=== PATIENT | male | born 1940 | race African-American/Black ===

== ENCOUNTER 2025-06-08 19:00 | Inpatient (IN) | payer MEDICARE, MEDICAID ==
[~2025-06-08] VITALS: Ht 170.2 cm; Wt 62.6 kg
[~2025-06-08 19:00] MED LIST: DILATIN
[2025-06-08] MEDS: SODIUM CHLORIDE 0.9% 1,000 ML IV ONE ×2 (19:25→19:48)
[2025-06-08 19:59] LABS: BASOPHILS % 0.3 % (0.0-2.0); EOSINOPHILS % 0.5 % (0.0-5.0); HEMATOCRIT. 36.4 % (42.0-52.0); HEMOGLOBIN. 11.0 g/dL (14.0-18.0); LYMPHOCYTES % 28.6 % (20.0-50.0); MEAN PLATELET VOLUME 8.3 fl (7.4-10.4); MONOCYTES % 8.4 % (2.0-8.0); NEUTROPHILS % 62.2 % (40.0-76.0); PLATELET 302 x1000/uL (130-400); RED BLOOD CELL COUNT 4.22 mill/uL (4.7-6.1); RED CELL DISTRIBUTION WIDTH 21.6 % (11.6-14.6)
[2025-06-08 20:14] LABS: TROPONIN I HIGH SENSITIVITY 41 ng/L (3.0-53)
[2025-06-08 20:15] LABS: CREATININE 1.1 mg/dL (0.6-1.3); UREA NITROGEN BLOOD 25 mg/dL (9-23)
[2025-06-08 20:17] LABS: ASPARTATE AMINOTRANSFERASE 15 IU/L (<34); BILIRUBIN DIRECT < 0.1 mg/dL (<=3.0); BILIRUBIN TOTAL 0.2 mg/dL (0.1-1.0); PROTEIN TOTAL 8.3 g/dL (6.0-8.3)
[2025-06-08 22:13] LABS: TROPONIN I HIGH SENSITIVITY 44 ng/L (3.0-53)
[2025-06-08] MEDS ORDERED: ACETAMINOPHEN 650MG SUPP PR PRN ×2 (23:15)
[2025-06-08] MEDS ORDERED: ONDANSETRON HCL 4MG/2ML INJ IV PRN (23:15)
[2025-06-08] MEDS ORDERED: DIPHENHYDRAMINE 50MG/ML VIAL IV PRN (23:15)
[2025-06-09] VITALS (7 sets, daily range): BP systolic 109–152; BP diastolic 51–103; PULSE 85–102; RESP 16–21; TEMP 36.2–37.2; O2SAT 94–100
[2025-06-09] MEDS ORDERED: CLOP-31 MT (00:43)
[2025-06-09] MEDS ORDERED: COR3 MT (00:47)
[2025-06-09] MEDS ORDERED: LIP40 MT (00:47)
[2025-06-09] MEDS ORDERED: PHEN100C4 MT (01:14)
[2025-06-09] MEDS ORDERED: ASPI-1079 PO (01:17)
[2025-06-09] MEDS ORDERED: LISI2.5T47 PO (01:17)
[2025-06-09] MEDS ORDERED: KEPPSOL MT (01:17)
[2025-06-09] MEDS ORDERED: TAMS-54 MT (01:18)
[2025-06-09] MEDS: DEXT 5%/0.2% NACL 1,000 ML IV SCH (06:44)
[2025-06-09] MEDS: FAMOTIDINE 20MG/2ML VIAL IV SCH (09:44)
[2025-06-09] MEDS: ENOXAPARIN 40MG/0.4ML SYR SUBCUT SCH (09:44)
[2025-06-09 12:41] LABS: BASOPHILS % 0.3 % (0.0-2.0); EOSINOPHILS % 0.5 % (0.0-5.0); HEMATOCRIT. 33.7 % (42.0-52.0); HEMOGLOBIN. 10.2 g/dL (14.0-18.0); LYMPHOCYTES % 25.6 % (20.0-50.0); MEAN PLATELET VOLUME 8.2 fl (7.4-10.4); MONOCYTES % 8.8 % (2.0-8.0); NEUTROPHILS % 64.8 % (40.0-76.0); PLATELET 270 x1000/uL (130-400); RED BLOOD CELL COUNT 3.86 mill/uL (4.7-6.1); RED CELL DISTRIBUTION WIDTH 20.9 % (11.6-14.6)
[2025-06-09 13:24] LABS: CREATININE 0.8 mg/dL (0.6-1.3)
[2025-06-09 13:25] LABS: UREA NITROGEN BLOOD 24 mg/dL (9-23)
[2025-06-09 13:27] LABS: PHOSPHORUS 2.5 mg/dL (2.5-4.9)
[2025-06-09 13:29] LABS: T4 FREE 1.29 ng/dL (0.89-1.76)
[2025-06-09 14:10] LABS: CLARITY URINE TURBID (CLEAR); COLOR URINE YELLOW (YELLOW); GLUCOSE URINE NEGATIVE (NEGATIVE); KETONES URINE 1+ (NEGATIVE); LEUKOCYTE ESTERASE URINE 2+ (NEGATIVE); NITRITE URINE NEGATIVE (NEGATIVE); OCCULT BLOOD URINE 2+ (NEGATIVE); PH URINE 6.0 (4.5-8.0); PROTEIN URINE 3+ (NEGATIVE); SPECIFIC GRAVITY URINE 1.020 (1.005-1.030); UROBILINOGEN URINE 0.2 E.U./dL (0.2-1.0)
[2025-06-09 14:28] LABS: BACTERIA URINE TRACE; RBC URINE 15-25 /hpf (0-2); SQUAMOUS EPITHELIAL CELL URINE 1+ /lpf (RARE/1+); WBC URINE TNTC /hpf (0-2)
[2025-06-10] VITALS (18 sets, daily range): BP systolic 89–161; BP diastolic 59–104; PULSE 62–133; RESP 14–29; TEMP 36.1–36.9; O2SAT 96–100
[2025-06-10 09:25] LABS: CREATININE 0.8 mg/dL (0.6-1.3); UREA NITROGEN BLOOD 18 mg/dL (9-23)
[2025-06-10] MEDS ORDERED: LORAZEPAM 2MG/ML UD SYRINGE ONE (20:32)
[2025-06-10] MEDS ORDERED: MIDAZOLAM 100MG/100ML PMX 100 ML IV PRN (21:00)
[2025-06-10] MEDS: PROPOFOL 10MG/ML 100ML 100 ML IV PRN (21:16)
[2025-06-10] MEDS ORDERED: IPRATROPIUM/ALBUTEROL 0.5-3(2.5)MG/3ML NEB HHN PRN (22:00)
[2025-06-10 22:09] LABS: BG BASE EXCESS -5.1 mmol/L (-2.0-3.0); BG CARBOXYHEMOGLOBIN 0.3 % (0.5-1.5); BG DEOXYHEMOGLOBIN 0.3 % (0.0-5.0); BG FRACTION INSPIRED OXYGEN 100; BG HCO3 ACT 17.7 mmol/L (21.0-28.0); BG METHEMOGLOBIN 0.0 % (0.5-1.5); BG OXYGEN SATURATION 99.7 % (94.0-98.0); BG OXYHEMOGLOBIN 99.4 % (94.0-98.0); BG PCO2 26.3 mmHg (35.0-48.0); BG PEEP (cmH2O) 5.0 cmH2O; BG PH 7.445 (7.350-7.450); BG PO2 616.9 mmHg (83.0-108.0); BG SAMPLE SITE RIGHT BRACHIAL; BG TIDAL VOLUME(mL) 500.0 mL; BG TOTAL HEMOGLOBIN 11.0 g/dL (13.5-17.5); BG TOTAL RESPIRATORY RATE 19 b/min; BG VENT MODE VENT - AC; BG VENT RATE 16.0 set
[2025-06-10] MEDS: LEVETIRACETAM 1000MG PREMIX 100 ML IV SCH (22:28)
[2025-06-10] MEDS: DEXTROSE 5% WATER 1,000 ML IV SCH (22:42)
[2025-06-10 23:41] LABS: PLATELET 229 x1000/uL (130-400); RED BLOOD CELL COUNT 4.00 mill/uL (4.7-6.1); RED CELL DISTRIBUTION WIDTH 20.0 % (11.6-14.6)
[2025-06-10 23:53] LABS: CREATININE 0.9 mg/dL (0.6-1.3); UREA NITROGEN BLOOD 15 mg/dL (9-23)
[2025-06-10 23:55] LABS: PHOSPHORUS 2.4 mg/dL (2.5-4.9)
[2025-06-11] VITALS (86 sets, daily range): BP systolic 81–139; BP diastolic 52–106; PULSE 75–117; RESP 12–22; TEMP 33.3–37.3; O2SAT 98–100
[2025-06-11 00:15] LABS: TROPONIN I HIGH SENSITIVITY 69 ng/L (3.0-53)
[2025-06-11] MEDS: MAGNESIUM 1 G PREMIX 100 ML IV SCH (05:42)
[2025-06-11] MEDS: CEFTRIAXONE 2GM/50ML 50 ML IV SCH (05:46)
[2025-06-11] MEDS: POTASSIUM PHOSPHATE 20 MMOL in DEXT 5% WATER 243.3333 ML IV SCH (05:47)
[2025-06-11 07:04] LABS: CREATININE 0.8 mg/dL (0.6-1.3)
[2025-06-11 07:05] LABS: TRIGLYCERIDE 122 mg/dL (0-150); UREA NITROGEN BLOOD 14 mg/dL (9-23)
[2025-06-11 07:07] LABS: PHOSPHORUS 2.5 mg/dL (2.5-4.9)
[2025-06-11] MEDS ORDERED: LEVETIRACETAM 1,000MG in NACL 100ML PREMIX IV SCH (09:00)
[2025-06-11 11:26] LABS: BG BASE EXCESS -5.2 mmol/L (-2.0-3.0); BG CARBOXYHEMOGLOBIN 0.3 % (0.5-1.5); BG DEOXYHEMOGLOBIN 0.5 % (0.0-5.0); BG FRACTION INSPIRED OXYGEN 35; BG HCO3 ACT 18.7 mmol/L (21.0-28.0); BG METHEMOGLOBIN 0.1 % (0.5-1.5); BG OXYGEN SATURATION 99.5 % (94.0-98.0); BG OXYHEMOGLOBIN 99.1 % (94.0-98.0); BG PCO2 30.6 mmHg (35.0-48.0); BG PEEP (cmH2O) 5.0 cmH2O; BG PH 7.403 (7.350-7.450); BG PO2 209.9 mmHg (83.0-108.0); BG SAMPLE SITE RIGHT RADIAL; BG TIDAL VOLUME(mL) 500.0 mL; BG TOTAL HEMOGLOBIN 10.5 g/dL (13.5-17.5); BG VENT MODE VENT - AC; BG VENT RATE 16.0 set
[2025-06-11] MEDS: POTASSIUM CHLORIDE 20MEQ/PACKET PO NR ×2 (11:35→13:27)
[2025-06-11] MEDS: MAGNESIUM 2 G PREMIX 50 ML IV NR (11:35)
[2025-06-11] MEDS: THIAMINE HCL 100MG TABLET PO SCH (15:32)
[2025-06-12] VITALS (77 sets, daily range): BP systolic 75–150; BP diastolic 45–120; PULSE 68–135; RESP 13–26; TEMP 35.8–37.1; O2SAT 10–100
[2025-06-12] MEDS ORDERED: PROPOFOL 10MG/ML 100ML 100 ML IV SCH (06:15)
[2025-06-12 06:20] LABS: PLATELET 188 x1000/uL (130-400); RED BLOOD CELL COUNT 3.65 mill/uL (4.7-6.1); RED CELL DISTRIBUTION WIDTH 20.1 % (11.6-14.6)
[2025-06-12] MEDS ORDERED: NOREPINEPHRINE 8MG/250ML PMX 250 ML IV PRN (06:45)
[2025-06-12 07:22] LABS: CREATININE 0.7 mg/dL (0.6-1.3); UREA NITROGEN BLOOD 7 mg/dL (9-23)
[2025-06-12 08:25] LABS: BG BASE EXCESS -3.7 mmol/L (-2.0-3.0); BG CARBOXYHEMOGLOBIN 0.1 % (0.5-1.5); BG DEOXYHEMOGLOBIN 0.5 % (0.0-5.0); BG FRACTION INSPIRED OXYGEN 30; BG HCO3 ACT 19.5 mmol/L (21.0-28.0); BG METHEMOGLOBIN 0.3 % (0.5-1.5); BG OXYGEN SATURATION 99.5 % (94.0-98.0); BG OXYHEMOGLOBIN 99.1 % (94.0-98.0); BG PCO2 29.0 mmHg (35.0-48.0); BG PEEP (cmH2O) 5.0 cmH2O; BG PH 7.445 (7.350-7.450); BG PO2 166.9 mmHg (83.0-108.0); BG SAMPLE SITE RIGHT RADIAL; BG TIDAL VOLUME(mL) 500.0 mL; BG TOTAL HEMOGLOBIN 10.4 g/dL (13.5-17.5); BG VENT MODE VENT - AC; BG VENT RATE 12.0 set
[2025-06-12] MEDS: POTASSIUM CHLORIDE 20MEQ/PACKET PO SCH (10:50)
[2025-06-12 11:37] LABS: BG BASE EXCESS -2.7 mmol/L (-2.0-3.0); BG CARBOXYHEMOGLOBIN 0.3 % (0.5-1.5); BG DEOXYHEMOGLOBIN 0.4 % (0.0-5.0); BG FRACTION INSPIRED OXYGEN 30; BG HCO3 ACT 19.7 mmol/L (21.0-28.0); BG METHEMOGLOBIN 0.3 % (0.5-1.5); BG OXYGEN SATURATION 99.6 % (94.0-98.0); BG OXYHEMOGLOBIN 99.0 % (94.0-98.0); BG PCO2 26.8 mmHg (35.0-48.0); BG PEEP (cmH2O) 5.0 cmH2O; BG PH 7.484 (7.350-7.450); BG PO2 184.5 mmHg (83.0-108.0); BG SAMPLE SITE RIGHT RADIAL; BG TOTAL HEMOGLOBIN 10.8 g/dL (13.5-17.5); BG VENT MODE VENT - CPAP/PS
[2025-06-12 11:40] LABS: BG TOTAL RESPIRATORY RATE 16 b/min
[2025-06-12] MEDS: CARVEDILOL 6.25 MG TABLET NG SCH (16:45)
[2025-06-12] MEDS: DILTIAZEM HCL 30MG TABLET NG SCH (17:07)
[2025-06-13] VITALS: BP 91/43; PULSE 69; RESP 19; TEMP 37.1; O2SAT 98
[2025-06-13 04:00] VITALS: BP 102/59; PULSE 76; RESP 20; TEMP 36.1; O2SAT 97
[2025-06-13 08:00] VITALS: BP_SYST 138; BP_SYST 98; BP_DIAS 55; BP_DIAS 75; PULSE 87; PULSE 93; RESP 18; RESP 20; TEMP 36.6; O2SAT 94; O2SAT 98
[2025-06-13 12:00] VITALS: BP 107/53; PULSE 108; RESP 18; TEMP 36.6; O2SAT 96
[2025-06-13 12:14] LABS: BASOPHILS % 0.2 % (0.0-2.0); EOSINOPHILS % 0.5 % (0.0-5.0); HEMATOCRIT. 27.1 % (42.0-52.0); HEMOGLOBIN. 8.6 g/dL (14.0-18.0); LYMPHOCYTES % 21.2 % (20.0-50.0); MEAN PLATELET VOLUME 9.0 fl (7.4-10.4); MONOCYTES % 8.2 % (2.0-8.0); NEUTROPHILS % 69.9 % (40.0-76.0); PLATELET 167 x1000/uL (130-400); RED BLOOD CELL COUNT 3.30 mill/uL (4.7-6.1); RED CELL DISTRIBUTION WIDTH 19.8 % (11.6-14.6)
[2025-06-13 12:39] LABS: CREATININE 0.7 mg/dL (0.6-1.3); UREA NITROGEN BLOOD 8 mg/dL (9-23)
[2025-06-13 16:00] VITALS: BP 124/51; PULSE 88; RESP 18; TEMP 36.3; O2SAT 97
[2025-06-13 20:00] VITALS: BP 127/56; PULSE 94; RESP 18; TEMP 36.7; O2SAT 100
[2025-06-14] VITALS: BP 105/58; PULSE 92; RESP 18; TEMP 36.6; O2SAT 98
[2025-06-14 04:00] VITALS: BP 108/60; PULSE 98; RESP 19; TEMP 36.4; O2SAT 99
[2025-06-14 08:00] VITALS: BP 115/69; PULSE 93; RESP 19; TEMP 36.7; O2SAT 96
[2025-06-14 08:05] LABS: INR 1.1
[2025-06-14 08:41] LABS: CREATININE 0.7 mg/dL (0.6-1.3); TROPONIN I HIGH SENSITIVITY 27 ng/L (3.0-53); UREA NITROGEN BLOOD 8 mg/dL (9-23)
[2025-06-14 08:43] LABS: BASOPHILS % 0.2 % (0.0-2.0); EOSINOPHILS % 0.6 % (0.0-5.0); HEMATOCRIT. 26.1 % (42.0-52.0); HEMOGLOBIN. 8.4 g/dL (14.0-18.0); LYMPHOCYTES % 18.1 % (20.0-50.0); MEAN PLATELET VOLUME 9.2 fl (7.4-10.4); MONOCYTES % 8.7 % (2.0-8.0); NEUTROPHILS % 72.4 % (40.0-76.0); PLATELET 167 x1000/uL (130-400); RED BLOOD CELL COUNT 3.14 mill/uL (4.7-6.1); RED CELL DISTRIBUTION WIDTH 20.1 % (11.6-14.6)
[2025-06-14 08:44] LABS: FOLIC ACID (FOLATE) SERUM 8.91 ng/mL (>5.38); VITAMIN B12 SERUM 1269 pg/mL (211-911)
[2025-06-14] MEDS: PANTOPRAZOLE SODIUM 40 MG/VIAL IV SCH (10:29)
[2025-06-14 12:00] VITALS: BP 112/65; PULSE 98; RESP 18; TEMP 36.5; O2SAT 96
[2025-06-14 16:00] VITALS: BP 113/56; PULSE 80; RESP 18; TEMP 36.7; O2SAT 96
[2025-06-14 20:00] VITALS: BP 120/68; PULSE 90; RESP 17; TEMP 36.9; O2SAT 100
[2025-06-15] VITALS (7 sets, daily range): BP systolic 106–132; BP diastolic 52–71; PULSE 74–110; RESP 13–20; TEMP 36.1–37.9; O2SAT 17–99
[2025-06-15] MEDS: CEFTRIAXONE 2GM/50ML 50 ML IV SCH (15:05)
[2025-06-16] VITALS: BP 111/54; PULSE 95; RESP 18; TEMP 36.4; O2SAT 98
[2025-06-16 04:00] VITALS: BP 101/60; PULSE 99; RESP 18; TEMP 36.4; O2SAT 98
[2025-06-16 07:25] LABS: CREATININE 0.6 mg/dL (0.6-1.3)
[2025-06-16 07:26] LABS: UREA NITROGEN BLOOD 7 mg/dL (9-23)
[2025-06-16 07:28] LABS: ASPARTATE AMINOTRANSFERASE 30 IU/L (<34); BILIRUBIN TOTAL < 0.2 mg/dL (0.1-1.0)
[2025-06-16 07:34] LABS: BASOPHILS % 0.3 % (0.0-2.0); EOSINOPHILS % 1.2 % (0.0-5.0); HEMATOCRIT. 26.0 % (42.0-52.0); HEMOGLOBIN. 8.3 g/dL (14.0-18.0); LYMPHOCYTES % 30.4 % (20.0-50.0); MEAN PLATELET VOLUME 8.7 fl (7.4-10.4); MONOCYTES % 12.2 % (2.0-8.0); NEUTROPHILS % 55.9 % (40.0-76.0); PLATELET 221 x1000/uL (130-400); RED BLOOD CELL COUNT 3.15 mill/uL (4.7-6.1); RED CELL DISTRIBUTION WIDTH 19.5 % (11.6-14.6)
[2025-06-16 07:42] LABS: INR 1.1
[2025-06-16 08:00] VITALS: BP 122/63; PULSE 90; RESP 18; TEMP 36.6; O2SAT 99
[2025-06-16 08:00] LABS: PROTEIN TOTAL 5.5 g/dL (6.0-8.3)
[2025-06-16 12:00] VITALS: BP 94/58; PULSE 81; RESP 18; TEMP 36.7; O2SAT 99
[2025-06-16] MEDS: METOCLOPRAMIDE HCL 10MG/2ML VIAL IV SCH (18:15)
[2025-06-16 20:00] VITALS: BP 119/72; PULSE 87; RESP 18; TEMP 36.3; O2SAT 100
[2025-06-17] VITALS: BP 121/60; PULSE 88; RESP 18; TEMP 36.4; O2SAT 100
[2025-06-17 04:00] VITALS: BP 95/50; PULSE 65; RESP 18; TEMP 36.8; O2SAT 100
[2025-06-17 08:00] VITALS: BP 102/57; PULSE 95; RESP 19; TEMP 36.6; O2SAT 99
[2025-06-17] MEDS ORDERED: NON FORMULARY MED XX SCH (11:30)
[2025-06-17 12:00] VITALS: BP 87/46; PULSE 81; RESP 17; TEMP 36.4; O2SAT 100
[2025-06-17] MEDS: IRON SUCROSE COMPLEX 100 MG/5 ML ML IV SCH (12:37)
[2025-06-17 16:00] VITALS: BP_SYST 110; BP_SYST 124; BP_DIAS 51; BP_DIAS 66; PULSE 81; PULSE 88; RESP 18; TEMP 36.3; TEMP 36.7; O2SAT 97; O2SAT 98
[2025-06-17 17:57] LABS: BASOPHILS % 0.1 % (0.0-2.0); EOSINOPHILS % 0.6 % (0.0-5.0); HEMATOCRIT. 26.0 % (42.0-52.0); HEMOGLOBIN. 8.5 g/dL (14.0-18.0); LYMPHOCYTES % 20.8 % (20.0-50.0); MEAN PLATELET VOLUME 8.6 fl (7.4-10.4); MONOCYTES % 8.1 % (2.0-8.0); NEUTROPHILS % 70.4 % (40.0-76.0); PLATELET 219 x1000/uL (130-400); RED BLOOD CELL COUNT 3.16 mill/uL (4.7-6.1); RED CELL DISTRIBUTION WIDTH 18.7 % (11.6-14.6)
[2025-06-17 18:11] LABS: CREATININE 0.7 mg/dL (0.6-1.3); UREA NITROGEN BLOOD 9 mg/dL (9-23)
[2025-06-17 20:00] VITALS: BP 130/89; PULSE 92; RESP 18; TEMP 36.6; O2SAT 100
[2025-06-18] VITALS: BP 100/56; PULSE 88; RESP 18; TEMP 36.7; O2SAT 100
[2025-06-18 04:00] VITALS: BP 99/56; PULSE 87; RESP 19; TEMP 36.7; O2SAT 98
[2025-06-18 06:24] LABS: CREATININE 0.6 mg/dL (0.6-1.3); UREA NITROGEN BLOOD 8 mg/dL (9-23)
[2025-06-18 06:53] LABS: BASOPHILS % 0.1 % (0.0-2.0); EOSINOPHILS % 0.7 % (0.0-5.0); HEMATOCRIT. 25.9 % (42.0-52.0); HEMOGLOBIN. 8.5 g/dL (14.0-18.0); LYMPHOCYTES % 20.6 % (20.0-50.0); MEAN PLATELET VOLUME 8.6 fl (7.4-10.4); MONOCYTES % 9.4 % (2.0-8.0); NEUTROPHILS % 69.2 % (40.0-76.0); PLATELET 207 x1000/uL (130-400); RED BLOOD CELL COUNT 3.17 mill/uL (4.7-6.1); RED CELL DISTRIBUTION WIDTH 19.4 % (11.6-14.6)
[2025-06-18 08:00] VITALS: BP 96/59; PULSE 90; RESP 19; TEMP 36.8; O2SAT 100
[2025-06-18] MEDS: DILTIAZEM HCL 30MG TABLET NG SCH (09:30)
[2025-06-18 12:00] VITALS: BP 115/67; PULSE 90; RESP 19; TEMP 37.2; O2SAT 99
[2025-06-18 16:00] VITALS: BP 118/57; PULSE 91; RESP 19; TEMP 36.8; O2SAT 97
[2025-06-18] MEDS: DILTIAZEM HCL 30MG TABLET GT SCH (17:23)
[2025-06-18 20:00] VITALS: BP 98/51; PULSE 85; RESP 20; TEMP 36.4; O2SAT 99
[2025-06-18] MEDS: CARVEDILOL 6.25 MG TABLET GT SCH (21:42)
[2025-06-19] VITALS: BP 90/50; PULSE 83; RESP 20; TEMP 36.5; O2SAT 97
[2025-06-19 04:00] VITALS: BP 88/47; RESP 18; TEMP 36.6; O2SAT 99
[2025-06-19 08:00] VITALS: BP 113/70; PULSE 82; RESP 18; TEMP 36.2; O2SAT 98
[2025-06-19 12:00] VITALS: BP 115/77; PULSE 82; RESP 18; TEMP 36.2; O2SAT 98
[2025-06-19] MEDS ORDERED: DILT30TA3 GT (13:46)
[2025-06-19] MEDS ORDERED: LEVE1000 MT (13:46)
[2025-06-19 14:54] LABS: BG BASE EXCESS 3.0 mmol/L (-2.0-3.0); BG CARBOXYHEMOGLOBIN 0.5 % (0.5-1.5); BG DEOXYHEMOGLOBIN 2.8 % (0.0-5.0); BG FRACTION INSPIRED OXYGEN 21; BG HCO3 ACT 26.2 mmol/L (21.0-28.0); BG METHEMOGLOBIN 0.3 % (0.5-1.5); BG OXYGEN SATURATION 97.2 % (94.0-98.0); BG OXYHEMOGLOBIN 96.4 % (94.0-98.0); BG PCO2 34.8 mmHg (35.0-48.0); BG PH 7.495 (7.350-7.450); BG PO2 91.4 mmHg (83.0-108.0); BG SAMPLE SITE RIGHT BRACHIAL; BG TOTAL HEMOGLOBIN 9.2 g/dL (13.5-17.5); BG VENT MODE ROOM AIR
[2025-06-19 16:00] VITALS: BP 109/60; PULSE 88; RESP 18; TEMP 36.2; O2SAT 99
[2025-06-19] MEDS: DILTIAZEM HCL 30MG TABLET GT SCH (19:04)
[2025-06-19 20:00] VITALS: BP 99/50; PULSE 90; RESP 17; TEMP 36.6; O2SAT 97
[2025-06-20] VITALS: BP 102/58; PULSE 78; RESP 18; TEMP 36.5; O2SAT 98
[2025-06-20 04:00] VITALS: BP 122/66; PULSE 89; RESP 18; TEMP 36.8; O2SAT 97
[2025-06-20 08:00] VITALS: BP 119/56; PULSE 90; RESP 19; TEMP 36.7; O2SAT 96
[2025-06-20 11:05] VITALS: BP 119/56; PULSE 90; RESP 19; TEMP 98
== END 2025-06-20 12:25 | disposition home health service (06) | DRG 682 ==
LOC: ER 19:00 → EDBEDREQ 20:19 → 5WST 21:00 → EDBEDREQTM 21:21 → EDBEDREQ 21:21 → ENRESERV 21:35 → MICUSO 06-10 20:53 → 6WST 06-12 17:56
PROVIDERS: ADMIT Internal Medicine; ATTEND Internal Medicine
PROC: 5A1945Z Respiratory Ventilation, 24-96 Consecutive Hours (ICD-10-PCS; 2025-06-10)
PROC: 0BH17EZ Insertion of Endotracheal Airway into Trachea, Via Natural or Artificial Opening (ICD-10-PCS; 2025-06-10)
PROC: 02HV33Z Insertion of Infusion Device into Superior Vena Cava, Percutaneous Approach (ICD-10-PCS; 2025-06-11)
PROC: B548ZZA Ultrasonography of Superior Vena Cava, Guidance (ICD-10-PCS; 2025-06-11)
PROC: 4A00X4Z Measurement of Central Nervous Electrical Activity, External Approach (ICD-10-PCS; principal; 2025-06-13)
PROC: 0DH63UZ Insertion of Feeding Device into Stomach, Percutaneous Approach (ICD-10-PCS; 2025-06-16)
PROC: 0DB78ZX Excision of Stomach, Pylorus, Via Natural or Artificial Opening Endoscopic, Diagnostic (ICD-10-PCS; 2025-06-16)
DX: N17.9 Acute kidney failure, unspecified (principal); J96.01 Acute respiratory failure with hypoxia; N39.0 Urinary tract infection, site not specified; E87.1 Hypo-osmolality and hyponatremia; E46 Unspecified protein-calorie malnutrition; E87.0 Hyperosmolality and hypernatremia; E86.0 Dehydration; I10 Essential (primary) hypertension; R13.10 Dysphagia, unspecified; E83.42 Hypomagnesemia; E83.39 Other disorders of phosphorus metabolism; E87.6 Hypokalemia; D63.8 Anemia in other chronic diseases classified elsewhere; E03.9 Hypothyroidism, unspecified; E78.5 Hyperlipidemia, unspecified; E88.09 Other disorders of plasma-protein metabolism, not elsewhere classified; G40.901 Epilepsy, unspecified, not intractable, with status epilepticus; I48.0 Paroxysmal atrial fibrillation; K29.70 Gastritis, unspecified, without bleeding; K44.9 Diaphragmatic hernia without obstruction or gangrene; R79.89 Other specified abnormal findings of blood chemistry; R62.7 Adult failure to thrive; R94.31 Abnormal electrocardiogram [ECG] [EKG]; I25.10 Atherosclerotic heart disease of native coronary artery without angina pectoris; I95.9 Hypotension, unspecified; Z74.01 Bed confinement status; Z93.1 Gastrostomy status; I25.2 Old myocardial infarction; Z79.899 Other long term (current) drug therapy; I69.320 Aphasia following cerebral infarction; Z88.8 Allergy status to other drugs, medicaments and biological substances; Z68.21 Body mass index [BMI] 21.0-21.9, adult
CPT/HCPCS: 31500; 31720; 36415; 36600; 70551; 71045; 80048; 80053; 80076; 81003; 82140; 82375; 82607; 82728; 82746; 82805; 83540; 83550; 83605; 83735; 84100; 84132; 84145; 84439; 84443; 84478; 84484; 85025; 85027; 85044; 88305; 92610; 93005; 93306; 94002; 94003; 94070; 94664; 95816; 96360; 98960; 99291; A4606; J0696; J1308; J1650; J1953; J2060; J2470; J2704; J2765; J3475; J3490; J7030; J7060; J7070